=== PATIENT | male | born 1945 | race Caucasian/White ===

== ENCOUNTER → 2019-11-21 08:13 | Outpatient (REF) | payer MEDICARE, SELFPAY | LOC: ANHLAB 08:13 | PROVIDERS: PCP Family Medicine; Visit Provider Nurse Practitioner | DX: C44.42 Squamous cell carcinoma of skin of scalp and neck (principal) | CPT/HCPCS: 88305 ==

== ENCOUNTER → 2020-02-05 08:01 | Outpatient (REF) | payer MEDICARE, SELFPAY | LOC: ANHLAB 08:01 | PROVIDERS: PCP Family Medicine; Visit Provider Nurse Practitioner | DX: C44.42 Squamous cell carcinoma of skin of scalp and neck (principal) | CPT/HCPCS: 88305; 88331 ==

== ENCOUNTER → 2020-03-12 08:30 | Outpatient (REF) | payer MEDICARE, SELFPAY | LOC: ANHLAB 08:30 | PROVIDERS: PCP Family Medicine; Visit Provider Nurse Practitioner | DX: C44.42 Squamous cell carcinoma of skin of scalp and neck (principal); C44.319 Basal cell carcinoma of skin of other parts of face | CPT/HCPCS: 88305 ==

== ENCOUNTER → 2020-07-08 07:55 | Outpatient (REF) | payer MEDICARE, SELFPAY | LOC: ANHLAB 07:55 | PROVIDERS: PCP Family Medicine; Visit Provider Nurse Practitioner | DX: C44.319 Basal cell carcinoma of skin of other parts of face (principal); C44.42 Squamous cell carcinoma of skin of scalp and neck; D49.2 Neoplasm of unspecified behavior of bone, soft tissue, and skin; C44.1192 Basal cell carcinoma of skin of left lower eyelid, including canthus | CPT/HCPCS: 88305; 88331 ==

== ENCOUNTER → 2020-09-17 08:40 | Outpatient (REF) | payer MEDICARE, SELFPAY | LOC: ANHLAB 08:40 | PROVIDERS: PCP Family Medicine; Visit Provider Nurse Practitioner | DX: C44.42 Squamous cell carcinoma of skin of scalp and neck (principal) | CPT/HCPCS: 88305 ==

== ENCOUNTER → 2020-11-11 07:22 | Outpatient (REF) | payer MEDICARE, SELFPAY | LOC: ANHLAB 07:22 | PROVIDERS: PCP Family Medicine; Visit Provider Nurse Practitioner | DX: C44.42 Squamous cell carcinoma of skin of scalp and neck (principal) | CPT/HCPCS: 88305; 88331 ==

== ENCOUNTER → 2021-03-11 08:50 | Outpatient (REF) | payer MEDICARE, SELFPAY | LOC: ANHLAB 08:50 | PROVIDERS: PCP Family Medicine; Visit Provider Nurse Practitioner | DX: D49.2 Neoplasm of unspecified behavior of bone, soft tissue, and skin (principal) | CPT/HCPCS: 88305; 88342 ==

== ENCOUNTER 2021-04-20 13:32 | Outpatient (CLI) | payer MEDICARE, SELFPAY ==
--- NOTE | ~2021-04-20 | MR_ITS ---
EXAMINATION: MR brain/brain stem wo con EXAM DATE: 04/20/2021 14:42 INDICATION: Memory loss. TECHNIQUE: Magnetic resonance imaging (MRI) of the brain/brain stem obtained without contrast. Sagitt al T1, axial diffusion, gradient echo (T2*), T1, T2, FLAIR sequences obtained. Comparison is made to prior examination from 06/15/2019. FINDINGS: There are no areas of restricted diffusion to suggest acute infarction. There is no acute hemorrhage seen on the T2*, a hemosiderin sensitive sequence. No intraparenchymal brain mass lesion. There is moderate periventricular and subcortical T2/FLAIR signal hyperintensity, nonspecific but pr obably related to small vessel ischemic disease (microangiopathy). There is moderate prominence of the sulci and ventricles related to cerebral atrophy. There are no extra-axial collections. Flow v oids are seen in the cerebral arteries on the T2-weighted sequences consistent with their expected pa tency. Patient has had bilateral ocular lens surgery. Soft tissue is unremarkable. There is no sig nificant interval change. IMPRESSION: 1. No acute intracranial findings. 2. Chronic age related findings. Reviewed, dictated and finalized at location A.
== END 2021-04-20 13:33 | disposition home or self-care (01) ==
LOC: ANHIMG 13:33
PROVIDERS: PCP Family Medicine; Visit Provider Nurse Practitioner Gerontology
DX: R41.3 Other amnesia (principal)
CPT/HCPCS: 70551

== ENCOUNTER 2021-05-01 09:27 | Outpatient (CLI) | payer MEDICARE, SELFPAY ==
--- NOTE | 2021-05-01 09:29 | ECG_ITS ---
Measurements Intervals [place] Rate: 59 P: 62 [place]: 169 QRS: 20 QRSD: 106 T: 42 QT: 387 QTc: 385 Interpretive Statements SINUS BRADYCARDIA INCOMPLETE RIGHT BUNDLE BRANCH BLOCK BASELINE ARTIFACT- I, III, AVR, AVL, AVF BORDERLINE ECG Electronically Signed On 05-01-2021 9:46:40 CDT by Charlie Ruiz D.O.
[2021-05-01 09:57] LABS: Hemoglobin 12.6 g/dL (14.0-18.0); Mean Corpuscular HGB Conc 32.3 g/dl (32-36); Mean Corpuscular Hemoglobin 34.9 pg (26-34); Mean Platelet Volume 12.3 fl (7.4-10.4); Platelet Count Result 293 k/mm3 (150-375); Red Blood Count 3.61 M/mm3 (4.6-6.20); Red Cell Distribution Width 14.3 % (11.5-14.5); White Blood Count 27.5 K/mm3 (4.5-10.0)
[2021-05-01 10:15] LABS: INR 1.1; Prothrombin Time 13.8 Seconds (11.1-14.7)
[2021-05-01 10:16] LABS: Partial Thromboplastin Time 28.2 SECONDS (22.3-36.8)
[2021-05-01 10:48] LABS: Band Neutrophils Percent 5 % (0-6); Basophils Absolute Manual 0.82 K/mm3 (0.0-0.1); Basophils Percent Manual 3 % (0-1); Eosinophils Absolute Manual 0.27 K/mm3 (0.02-0.5); Eosinophils Percent Manual 1 % (0-4); Monocytes Percent Manual 4 % (3-9); Neutrophils Percent Manual 59 % (46-73); Total Cells Counted 100
[2021-05-01 10:49] LABS: Anisocytosis 2+ (NORMAL); Atypical Lymphocytes Present; Digoxin < 0.5 ng/mL (0.8-2.0); Platelet Estimate Adequate (Adequate)
[2021-05-01 10:50] LABS: Anion Gap 9 mmol/L (8-16); Blood Urea Nitrogen 25 mg/dL (9-20); Calcium 10.3 mg/dL (8.4-10.2); Carbon Dioxide 29 mmol/L (22-30); Chloride 100 mmol/L (98-107); Estimated Glomerular Filt Rate 59; Glucose 199 mg/dL (65-110); Potassium 4.5 mmol/L (3.4-5.0); Sodium 138 mmol/L (137-145)
== END 2021-05-01 09:28 | disposition home or self-care (01) ==
LOC: ANHSURGERY 09:28
PROVIDERS: Anesthesiology; PCP Family Medicine; Visit Provider Urology
DX: Z01.818 Encounter for other preprocedural examination (principal); N40.0 Benign prostatic hyperplasia without lower urinary tract symptoms; Z51.81 Encounter for therapeutic drug level monitoring; I10 Essential (primary) hypertension
CPT/HCPCS: 36415; 80048; 80162; 85025; 85610; 85730; 87086; 93005

== ENCOUNTER → 2021-05-05 07:55 | Outpatient (REF) | payer MEDICARE, SELFPAY | LOC: ANHLAB 07:55 | PROVIDERS: PCP Family Medicine; Visit Provider Nurse Practitioner | DX: C44.42 Squamous cell carcinoma of skin of scalp and neck (principal) | CPT/HCPCS: 88305; 88331 ==

== ENCOUNTER 2021-05-13 00:39 | Day surgery (SDC) | payer MEDICARE, SELFPAY ==
[2021-04-30 09:15] VITALS: BMI 24.4
[2021-05-13] VITALS (10 sets, daily range): BP systolic 107–167; BP diastolic 46–75; PULSE 55–73; RESP 13–20; TEMP 36.2–36.4; O2SAT 92–100
[2021-05-13] MEDS: LACTATED RINGERS 1,000 ML 30 ML IV CONT (07:10)
--- NOTE | 2021-05-13 07:12 | WPDHPUPDATE1 ---
History and Physical Update Update Date/Time: 05/13/21 07:12 History and Physical has been reviewed, including an updated exam of the patient. There are NO changes in the patient's condition. Risks, benefits, and alternatives have been discussed and questions answered. Patient agrees to proceed with procedure. Proceed with urolift , possible tuip
--- NOTE | 2021-05-13 07:16 | WPDANESEPPF ---
Anes - Initial Pre Proc Eval Procedure: Operation Date: 05/13/21 07:30 Proposed Procedures p Urolift - Mohinder Dunham MD s Trans Urethral Incision Prostate - Mohinder Dunham MD Date/Time: 05/13/21 07:16 Surgeon: Mohinder Dunham MD Pre Op Diagnosis: Benign Nodule, BPH Patient Data Age: 76 Gender: M Height: 1.75 m Weight: 75 kg Allergies Allergy/AdvReac Type Severity Reaction Status Date / Time No Known Allergies Allergy Verified 04/30/21 09:10 Home Medications Medication Instructions Recorded Confirmed Type apixaban 5 mg tablet 5 mg PO BID 08/21/19 05/13/21 History digoxin 125 mcg (0.125 mg) tablet 125 mcg PO DAILY 08/21/19 05/13/21 History hydroxyurea 500 mg capsule 500 mg PO DAILY 08/21/19 05/13/21 History metoprolol tartrate 25 mg tablet 25 mg PO DAILY 08/21/19 05/13/21 History metformin 1,000 mg tablet 1,000 mg PO BID #180 tablet 12/23/20 05/13/21 Rx memantine 5 mg tablet 5 mg PO QAM 01/15/21 05/13/21 History finasteride 5 mg tablet 5 mg PO DAILY #30 tablet 03/16/21 05/13/21 Rx tamsulosin 0.4 mg capsule 0.4 mg PO DAILY #90 cap 04/25/21 05/13/21 Rx acetaminophen [Tylenol Extra 1,000 mg PO HS 04/30/21 05/13/21 History Strength] atorvastatin [Lipitor] 20 mg PO DAILY 04/30/21 05/13/21 History donepezil [Aricept] 5 mg PO DAILY 04/30/21 05/13/21 History Patient hx anesthesia problems: none Family hx anesthesia problems: none PMFSH Past Medical History Medical History BMI 23.0-23.9, adult Diabetes High cholesterol History of melanoma Hypertension Surgical History Surgical History History of carpal tunnel release of both wrists History of knee surgery History of melanoma excision History of rotator cuff surgery Left Status post trigger finger release Marcial hand. Family History Family History Mother Family history of diabetes mellitus in first degree relative Other Diabetes mellitus Social History Social History Smoking status: Former smoker Second hand tobacco smoke exposure: No Additional smoking assessment comments: SPOUSE STATES QUIT OVER 25+YRS AGO Alcohol intake: current Drinks per week: 1 Substance use: never Substance use type: does not use Living arrangements: with family Spiritual care concerns: No Anes - Eval Final PreProcedure Day of Procedure 05/13/21 07:16 Patient weight: overweight Heart: regular rate and rhythm Lungs: clear to auscultation Airway: Mallampati scale class II Neurological: alert and oriented Last oral intake: >/= 8 hours ASA classification: III Emergent: no Anesthetic plan: proceed Anesthesia type and monitoring: general LMA and standard monitoring Informed Consent: The patient's anesthetic plan and its attendant risks and benefits were discussed with the patient/family/POA. Questions were solicited and answers provided to the satisfaction of the patient/family/POA.
[2021-05-13 07:22] LABS: Glucose Point of Care 242 mg/dl (65-105)
[2021-05-13] MEDS: ceFAZolin 2 GM/D5W 50 ML 2 GM/50 ML BAG IVPB (07:27)
[2021-05-13] MEDS: LIDOCAINE HCL 2% GEL UROJET 10 ML PKG MUCOUS MEM (07:42)
--- NOTE | 2021-05-13 08:13 | P.OP_ITS ---
Procedure Note - Detailed Date of Procedure 05/13/21 Pre-op Diagnosis Benign Nodule, BPH Post-op Diagnosis same Procedure Performed urolift x4 JESSICA padron Surgeon Mohinder Dunham MD Anesthesia general Description of Procedure Patient is taken to the operative suite and correctly identified. Once anesth esia was obtained was placed in dorsal lithotomy position and prepped draped usual sterile fashion. The meatus was dilated up to 28 [place]. Twenty-four [place] resectoscope sheath was inserted in the bladder. Patient has an elevated median bar. We did a transurethral incision of the prostate by incising at the 5 and 7 o'clock position. This left quite a bit of persistent elevation. We then used a 24 loop to simply resect the tissue at the bladder neck 6 o'clock position. Hemostasis was achieved using electrocautery. We then went ahead and did the year left. For vito were placed. Two were 2 1 cm proximal to the bladder neck and the other to near the verumontanum. The prostatic fossa appeared open at termination of procedure. 2% viscous lidocaine was inserted into the urethra. A 20 [place] Blue was placed with 10 cc in the balloon. This was connected to continuous bladder irrigation. Patient is taken recovery room stable condition. He will have the Blue removed in 2 days. Drains Yes Packing No Pathology yes Complications No immediate complications Condition stable Disposition PACU
[2021-05-13 08:42] LABS: Glucose Point of Care 223 mg/dl (65-105)
--- NOTE | 2021-05-13 08:51 | SUR.PHASEI ---
DR AWAD NOTIFIED OF GLUCOSE. PT WAS 242 AT 0719 PREOP, NOW POST OP IS 223 AT 0840. NO NEW ORDERS.
[2021-05-13] MEDS: oxyCODONE HCL (*CRX) 2.5 MG TAB IR PO (10:19)
== END 2021-05-13 10:35 | disposition home or self-care (01) ==
PROVIDERS: PCP Family Medicine; Visit Provider Urology
PROC: 0T7D8DZ Dilation of Urethra with Intraluminal Device, Via Natural or Artificial Opening Endoscopic (ICD-10-PCS; CPT 52441; principal; 2021-05-13 07:30)
PROC: 0VT08ZZ Resection of Prostate, Via Natural or Artificial Opening Endoscopic (ICD-10-PCS; CPT 52601; 2021-05-13 07:30)
DX: N40.1 Benign prostatic hyperplasia with lower urinary tract symptoms (principal); R33.8 Other retention of urine; R35.0 Frequency of micturition; R35.1 Nocturia; Z79.01 Long term (current) use of anticoagulants; Z79.84 Long term (current) use of oral hypoglycemic drugs; E11.9 Type 2 diabetes mellitus without complications; E78.00 Pure hypercholesterolemia, unspecified; I10 Essential (primary) hypertension; Z85.820 Personal history of malignant melanoma of skin; Z87.891 Personal history of nicotine dependence
CPT/HCPCS: 52450; C9740; 82948; 88305; A9270; J0690; J1100; J2405; J2704; J3010; J7120; L8699

== ENCOUNTER → 2021-09-16 11:11 | Outpatient (REF) | payer MEDICARE, SELFPAY | LOC: ANHLAB 11:11 | PROVIDERS: PCP Family Medicine; Visit Provider Nurse Practitioner | DX: C44.319 Basal cell carcinoma of skin of other parts of face (principal); C44.212 Basal cell carcinoma of skin of right ear and external auricular canal; C44.42 Squamous cell carcinoma of skin of scalp and neck | CPT/HCPCS: 88305 ==

== ENCOUNTER → 2021-10-29 10:05 | Outpatient (CLI) | payer MEDICARE, SELFPAY ==
--- NOTE | ~2021-10-29 | XR_ITS ---
EXAMINATION: XR chest 2V EXAM DATE: 10/29/2021 10:20 INDICATION: J20.9 - Acute bronchitis, unspecified . TECHNIQUE: Frontal and lateral projections of the chest obtained and reviewed. Comparison is made to prior examination from 09/13/2019. FINDINGS: There is large right pleural effusion. There is adjacent compressive atelectasis. Underlyin g malignancy or pneumonia not excludable. Left lung is clear. No pneumothorax. Cardiomediastinal lakshmi houette is normal. There is aortic arteriosclerosis.. Patient has diffuse idiopathic skeletal hyperos tosis (DISH). IMPRESSION: Large right pleural effusion, adjacent lobar atelectasis. Underlying cancer or pneumonia not excludable. Options include diagnostic thoracentesis, CT chest with contrast, follow-up x-ray. P david clinically correlate. Reviewed, dictated and finalized at location A. GER INTEL IMPRESSION: Large right pleural effusion, adjacent lobar atelectasis. Underlyin g cancer or pneumonia not excludable. Options include diagnostic thoracentesis , CT chest with contrast, follow-up x-ray. Please clinically correlate.
== END ==
PROVIDERS: PCP Family Medicine; Visit Provider Physician Assistant Medical
DX: J20.9 Acute bronchitis, unspecified (principal); J90 Pleural effusion, not elsewhere classified; I70.0 Atherosclerosis of aorta; M48.10 Ankylosing hyperostosis [Forestier], site unspecified
CPT/HCPCS: 71046

== ENCOUNTER 2021-11-17 15:20 | Inpatient (IN) | payer MEDICARE, SELFPAY ==
[2021-11-17] VITALS (10 sets, daily range): BP systolic 112–131; BP diastolic 61–80; PULSE 93–102; RESP 21–28; TEMP 36.4–36.8; O2SAT 97–98; BMI 21.3
--- NOTE | ~2021-11-17 | CT_ITS ---
EXAMINATION: CTA chest PE protocol DATE: 11/17/2021 16:56 INDICATION: Shortness of breath. Right lower chest pain. Large right pleural effusion TECHNIQUE: Computed tomography angiography (CTA) of the chest was performed with 100 mL Omnipaque-350 intravenous contrast timed to evaluate the pulmonary arteries. Coronal maximum intensity projection 3D-reconstructions were created by the technologist. Automated exposure control and iterative reconst ruction technique were employed. Exam dose: 258.53 mGy-cm total exam DLP. COMPARISON: 10/29/2021 PA and lateral chest FINDINGS: There is diagnostic contrast enhancement of the pulmonary arteries and no evidence of pulmo nary embolism. There is a huge right pleural effusion with complete atelectasis of the right lower and middle lobes and prominent right upper lobe atelectasis. There is minimal aeration of the middle lobe bronchus and no aeration of the right lower lobe. For more optimal evaluation, consider thoracentesis and repeat CT examination Due to the large right pleural effusion there is also some leftward shift of the heart mediastinum. There is mild to moderate pericardial effusion. No cardiomegaly. There is thoracic aortic and great vessel and coronary calcification. No left hilar mass lesion or ly mphadenopathy is noted. Emphysematous changes of the left lung there is some septal soft tissue thickening particularly in th e peripheral lung zones which may be due to interstitial edema, interstitial fibrosis less likely lym phangitic spread of tumor. 3.3 mm left upper lobe nodule (series 4 image 30). Diffuse idiopathic skeletal hyperostosis of the thoracic spine; no suspicious osteolytic or osteoblas tic lesions are noted IMPRESSION: No evidence of pulmonary embolism Very large right pleural effusion with complete atelectasis of middle and lower lobes and prominent a telectasis of right upper lobe and leftward shift of heart and mediastinum; consider right thoracente sis and repeat CT examination for more definitive evaluation Mild to moderate pericardial effusion Emphysema Predominantly peripheral septal soft tissue thickening of the left lung; differential diagnosis inclu chele interstitial edema, interstitial fibrotic changes, less likely lymphangitic tumor spread Reviewed, dictated and finalized at Location A. Reviewed, dictated and finalized at location B. OID MILL OPERATOR IMPRESSION: No evidence of pulmonary embolism Very large right pleural effusion with complete atelectasis of middle and lower lobes and prominent atelectasis of right upper lobe and leftward shift of hear t and mediastinum; consider right thoracentesis and repeat CT examination for m ore definitive evaluation Mild to moderate pericardial effusion Emphysema Predominantly peripheral septal soft tissue thickening of the left lung; differ ential diagnosis includes interstitial edema, interstitial fibrotic changes, le ss likely lymphangitic tumor spread
--- NOTE | ~2021-11-17 | XR_ITS ---
EXAMINATION: [id number] DATE: 11/18/2021 09:58 INDICATION: Right pleural effusion status post thoracentesis. TECHNIQUE: Frontal and lateral views of the chest were obtained. COMPARISON: Chest 2 views 05/09/2019, chest CT 11/17/2021 FINDINGS: There are large right and small left pleural effusions. There is a diffuse reticulonodular pattern in the lungs. No pneumothorax. The heart size is normal. IMPRESSION: 1. Large right and small left pleural effusions. 2. Reticulonodular pattern in the lungs, which may be infection or metastatic disease without or with superimposed pulmonary edema. Reviewed, dictated and finalized at location A. P SORTER IMPRESSION: 1. Large right and small left pleural effusions. 2. Reticulonodular pattern in the lungs, which may be infection or metastatic d isease without or with superimposed pulmonary edema.
--- NOTE | ~2021-11-17 | US_ITS ---
EXAMINATION: US thoracentesis DATE: 11/18/2021 09:56 INDICATION: pleural effusion TECHNIQUE: The procedure and its risks, benefits, and alternatives were discussed with the patient. P otential risks discussed included bleeding, infection, and pneumothorax. The patient understood the r isks and agreed to proceed. The skin was prepped and draped in sterile fashion. 1% lidocaine was used for local anesthesia. Under ultrasound guidance, a 5 Fr catheter with trochar was advanced into the right pleural effusion. Fluid was aspirated. The catheter was removed, and a dressing was applied. Th ere were no immediate complications. FINDINGS: Ultrasound images demonstrate a right pleural effusion and the catheter within the fluid. IMPRESSION: 1. Successful ultrasound-guided thoracentesis yielding 1000 mL of clear, breezy-colored fluid. Reviewed, dictated and finalized at location A. MER AND BORER MACHINE OPERATOR IMPRESSION: 1. Successful ultrasound-guided thoracentesis yielding 1000 mL of clear, breezy -colored fluid.
--- NOTE | 2021-11-17 15:47 | ECG_ITS ---
Measurements Intervals [place] Rate: 96 P: 60 [place]: 154 QRS: 38 QRSD: 94 T: 46 QT: 327 QTc: 415 Interpretive Statements SINUS RHYTHM INCOMPLETE RIGHT BUNDLE BRANCH BLOCK ST-T WAVE ABNORMALITY IN ANTEROLATERAL LEADS- CONSIDER ISCHEMIA BASELINE ARTIFACT- I, II, III, AVR, AVL, AVF, V6 ABNORMAL ECG Electronically Signed On 11-17-2021 16:59:24 CONSTRUCTION MGR by Charlie Ruiz D.O.
[2021-11-17 16:19] LABS: Basophils Absolute Auto 0.1 K/mm3 (0.0-0.1); Basophils Percent Auto 0.5 % (0.2-1.2); Eosinophils Absolute Auto 0.1 K/mm3 (0-0.3); Eosinophils Percent Auto 1.3 % (0-4.4); Hematocrit 35.4 % (42.0-52.0); Hemoglobin 11.7 g/dL (14.0-18.0); Immature Granulocyte Absolute 0.09 K/mm3 (0.00-0.031); Immature Granulocyte Percent A 0.8 % (0-0.5); Lymphocytes Absolute Auto 1.56 K/mm3 (0.9-3.2); Lymphocytes Percent Auto 14.1 % (18.3-44.2); Mean Corpuscular HGB Conc 33.1 g/dl (32-36); Mean Corpuscular Hemoglobin 35.9 pg (26-34); Mean Corpuscular Volume 108.6 fl (80-100); Mean Platelet Volume 11.6 fl (7.4-10.4); Monocytes Absolute Auto 2.6 K/mm3 (0.1-0.6); Monocytes Percent Auto 23.3 % (2.6-8.5); Neutrophils Absolute Auto 6.6 K/mm3 (1.3-6.7); Platelet Count Result 241 k/mm3 (150-375); Red Blood Count 3.26 M/mm3 (4.6-6.20); Red Cell Distribution Width 17.7 % (11.5-14.5); White Blood Count 11.1 K/mm3 (4.5-10.0)
[2021-11-17] MEDS: SODIUM CHLORIDE 0.9% IV 1,000 ML 999 ML IV CONT (16:19)
[2021-11-17 16:32] LABS: Lactic Acid Reflex 1.7 mmol/L (0.7-2.1)
[2021-11-17 16:33] LABS: INR 1.6; Prothrombin Time 18.7 Seconds (11.1-14.7)
[2021-11-17 16:34] LABS: Alanine Aminotransferase 14 U/L (4-50); Albumin Level 3.7 g/dL (3.5-5.1); Alkaline Phosphatase 92 U/L (38-126); Anion Gap 8 mmol/L (8-16); Aspartate Amino Transferase 19 U/L (17-59); Bilirubin,Total 0.8 mg/dL (0.2-1.3); Blood Urea Nitrogen 26 mg/dL (9-20); CRP 2.3 mg/dL (<1.0); Calcium 9.7 mg/dL (8.4-10.2); Carbon Dioxide 27 mmol/L (22-30); Chloride 98 mmol/L (98-107); Estimated Glomerular Filt Rate > 60; Glucose 171 mg/dL (65-110); Potassium 4.2 mmol/L (3.4-5.0); Sodium 133 mmol/L (137-145)
[2021-11-17 16:34] LABS: Partial Thromboplastin Time 34.5 SECONDS (22.3-36.8)
--- NOTE | 2021-11-17 16:45 | PC.NURSE ---
Called lab to add on BNP
[2021-11-17 16:57] LABS: Troponin I 0.048 ng/mL (0.000-0.034)
--- NOTE | 2021-11-17 17:14 | PC.NURSE ---
Called lab and spoke to Bethany about BNP. She will check status and get testing going if it has not yet been started
[2021-11-17 17:33] LABS: NT Pro B Type Natriuretic Pept 1190 pg/mL (5-100)
[2021-11-17 17:51] LABS: Add Urine Microscopic? NO; Appearance Urine Clear (Clear); Bilirubin Urine Negative (Negative); Blood Urine Negative (Negative); Color Urine Yellow (Yellow); Glucose Urine UA Negative (Negative); Ketones Urine Negative (Negative); Leukocyte Esterase Ur Negative LEU/UL (Negative); Nitrate Urine Negative (Negative); Protein Urine Negative (Negative); Urobilinogen Urine Negative mg/dL (<2.0)
--- NOTE | 2021-11-17 18:19 | ED.GENADULT ---
HPI - General Adult General Chief complaint: Weakness Stated complaint: Weakness Time Seen by Provider: 11/17/21 15:46 Source: patient, family, RN notes reviewed and other Mode of arrival: ambulatory Limitations: no limitations History of Present Illness HPI narrative: Patient is a 76-year-old male who presents with worsening dyspnea weight loss fatigue cough that of been present since October and progressively worsened and began to lose weight in the last year primary care had managed him as a bronchitis and noting that he had not gotten any better with antibiotics or steroids patient on arrival is ill-appearing he is lying in the bed nondistressed does not appear dyspneic or in respiratory distress patient denies any pain upon arrival he notes that his symptoms are worse with activity and movement. Patient denies vomiting diarrhea he is accompanied by his , discussion was also made with primary care doctor's office regarding this patient. Patient is also had some intermittent right-sided chest discomfort and abdominal discomfort in the upper abdomen Related Data Home Medications Medication Instructions Recorded Confirmed apixaban 5 mg tablet 5 mg PO BID 08/21/19 11/17/21 digoxin 125 mcg (0.125 mg) tablet 125 mcg PO DAILY 08/21/19 11/17/21 metoprolol tartrate 25 mg tablet 25 mg PO DAILY 08/21/19 11/17/21 donepezil [Aricept] 5 mg PO DAILY 04/30/21 11/17/21 hydroxyurea 500 mg capsule 1,000 mg PO DAILY cap 10/29/21 11/17/21 Allergies Allergy/AdvReac Type Severity Reaction Status Date / Time No Known Allergies Allergy Verified 11/17/21 14:24 Review of Systems Review of Systems: All systems reviewed & are unremarkable except as noted in HPI and below PMFSH Past Medical History Medical History BMI 23.0-23.9, adult Diabetes High cholesterol History of melanoma Hypertension Surgical History Surgical History History of bladder surgery History of carpal tunnel release of both wrists History of knee surgery History of melanoma excision History of rotator cuff surgery Left Status post trigger finger release Marcial hand. Family History Family History Mother Family history of diabetes mellitus in first degree relative Father No problems noted. Sibling No problems noted. 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 HEAD: Normocephalic, atraumatic. EYES: PERRLA and EOMI. ENT: Nares clear, no rhinorrhea or epistaxis. Mucous membranes moist. CHEST: Diminished on auscultation. No respiratory distress. Coarse breath sounds on auscultation HEART: Regular rate and rhythm. No murmur heard. Normal peripheral pulses. ABDOMEN: Soft, nontender, nondistended EXTREMITIES: Normal range of motion. No edema. SKIN: Warm, dry, no rash. NEURO: No focal deficits. Alert and oriented x3. PSYCH: Normal mood and affect. Course Course Emergency Course: Patient in the room at this time aware of case findings treatment plan and diagnosis will be placed in hospital for thoracentesis he is on Eliquis at this time will have to be held patient aware of his findings agreement with the treatment plan to stay in hospital for further information regarding his pleural effusion for therapeutic and diagnostic tap and for trending of his troponins. A
--- NOTE | 2021-11-17 19:00 | PM.IMHP ---
H&P: HPI History of Present Illness Date/Time: 11/17/21 19:00 <Sarah Ernandez PA-C - Last Filed: 11/17/21 20:00> Chief Complaint: Shortness of breath. <Sarah Ernandez PA-C - Last Filed: 11/17/21 20:00> Narrative: This is a very pleasant 76-year-old male with paroxysmal atrial fibrillation on chronic anticoagulation, type 2 diabetes mellitus, skin cancer, and essential thrombocytosis who presented to the emergency department today at the [facility] is primary care provider for further evaluation of shortness of breath. He complains of an ongoing cough (occasionally productive of clear phlegm), wheezing, shortness of breath, and progressive weakness which have been present for approximately 6 weeks. Chest x-ray on 10/29/2021 showed a large right pleural effusion for which he receives steroids, antibiotics, and inhalers. Unfortunately his symptoms continue despite these interventions. Additionally his appetite has been quite poor for the last month and a half and in fact he endorses a 30 lb unintentional weight loss in the same time frame. He had a follow-up appointment today with his doctor and was referred to the ER for further evaluation. Chest CTA showed no evidence of pulmonary embolism but did show a very large right pleural effusion with atelectasis and mediastinal shift as well as peripheral septal soft tissue thickening of the left lung, [id number] pericardial effusion, and findings of emphysema. He is being admitted in this setting for further workup. He has no known history of COPD, emphysema, or asthma. He has not had fever, chills, or sweats. Appetite has been poor but he has not had nausea or vomiting. He endorses mild right-sided chest discomfort with deep inspiration but nothing significant. No orthopnea, PND, or lower extremity edema. <Sarah Ernandez PA-C - Last Filed: 11/17/21 20:00> Review of Systems Review of Systems: Twelve systems were reviewed. No headache, sinus congestion, rhinorrhea, otalgia, or odynophagia. No exertional chest pain. No nausea or vomiting. No diarrhea. Except as documented, all other systems were reviewed and are negative. <Sarah Ernandez PA-C - Last Filed: 11/17/21 20:00> [facility] Past Medical History Medical History: Medical History (Updated 11/17/21 @ 19:50 by Sarah Ernandez PA-C) Benign prostatic hyperplasia Chronic anticoagulation Essential thrombocytosis History of skin cancer Including basal cell and squamous cell carcinoma. Melanoma documented however patient and deny this diagnosis. Hyperlipidemia Hypertension Osteoarthritis Paroxysmal atrial fibrillation Short-term memory loss Type 2 diabetes mellitus <Sarah Ernandez PA-C - Last Filed: 11/17/21 20:00> Surgical History Surgical History: Surgical History (Updated 11/17/21 @ 19:43 by Sarah Ernandez PA-C) History of bladder surgery Bladder biopsy, benign pathology. History of carpal tunnel release of both wrists History of knee surgery History of open reduction and internal fixation (ORIF) procedure Right femur fracture. History of repair of rotator cuff Bilateral. 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 Status post trigger finger release Bilateral. <Sarah Ernandez PA-C - Last Filed: 11/17/21 20:00> Family History Family History: Family History Mother Family history of diabetes mellitus in first degree relative Father No problems noted. Sibling No problems noted. Other Diabetes mellitus <Sarah Ernandez PA-C - Last Filed: 11/17/21 20:00> Social History Social History: Social History (Updated 11/17/21 @ 19:44 by Sarah Ernandez PA-C) Social History: Surrogate decision maker: Meera Patterson, . Code status: Full code. Smoking status: Former smoker Tobac
--- NOTE | 2021-11-17 19:50 | ADMGEN ---
This patient, Shane Patterson, was admitted to [facility] as an IMU overflow at 1948. Patient/family oriented to hospital policies and general routines including ID bracelet, bed and alarms, visiting hours, pain management, procedures, bathroom and other care routines, personal items, smoking policy, room service/diet, and visiting hours. Information on how to activate the Rapid Response Team has been discussed. Patient/Family are encouraged to report perceived risks to care and to ask questions if they do not understand what they are told or what they should do.
[2021-11-17 20:57] LABS: Troponin I 0.058 ng/mL (0.000-0.034)
[2021-11-17 23:01] LABS: Troponin I 0.061 ng/mL (0.000-0.034)
[2021-11-18] VITALS (19 sets, daily range): BP systolic 102–135; BP diastolic 41–67; PULSE 67–111; RESP 16–26; TEMP 36.2–36.5; O2SAT 97–100
[2021-11-18 05:54] LABS: Hematocrit 31.5 % (42.0-52.0); Hemoglobin 10.4 g/dL (14.0-18.0); Mean Corpuscular Hemoglobin 36.2 pg (26-34); Mean Corpuscular Volume 109.8 fl (80-100); Mean Platelet Volume 11.6 fl (7.4-10.4); Platelet Count Result 186 k/mm3 (150-375); Red Blood Count 2.87 M/mm3 (4.6-6.20); Red Cell Distribution Width 17.7 % (11.5-14.5); White Blood Count 8.8 K/mm3 (4.5-10.0)
[2021-11-18 06:05] LABS: INR 1.5; Prothrombin Time 17.4 Seconds (11.1-14.7)
[2021-11-18 06:06] LABS: Alanine Aminotransferase 10 U/L (4-50); Alkaline Phosphatase 81 U/L (38-126); Amylase 45 U/L (30-110); Anion Gap 3 mmol/L (8-16); Aspartate Amino Transferase 13 U/L (17-59); Bilirubin,Total 0.9 mg/dL (0.2-1.3); Blood Urea Nitrogen 21 mg/dL (9-20); Calcium 8.9 mg/dL (8.4-10.2); Carbon Dioxide 29 mmol/L (22-30); Chloride 103 mmol/L (98-107); Cholesterol 87 mg/dL (0-200); Estimated CRCL calculation 57 ml/min; Estimated Glomerular Filt Rate > 60; Glucose 115 mg/dL (65-110); Lactate Dehydrogenase 316 U/L (313-618); Magnesium 1.3 mg/dL (1.6-2.3); Potassium 4.2 mmol/L (3.4-5.0); Sodium 135 mmol/L (137-145); Triglycerides 154 mg/dL (<150)
[2021-11-18 08:12] LABS: Hemoglobin A1C 6.7 % (<5.7)
[2021-11-18] MEDS: METOPROLOL TARTRATE 25 MG TABLET PO ×2 (10:54→20:40)
[2021-11-18] MEDS: metFORMIN HCL 500 MG TABLET 1000 MG PO ×2 (10:54→16:45)
[2021-11-18] MEDS: HYDROXYUREA (*CHEMO) 500 MG CAPSULE PO (10:54)
[2021-11-18] MEDS: TAMSULOSIN HCL 0.4 MG CAPSULE PO (10:54)
[2021-11-18] MEDS: DIGOXIN TAB 125 MCG TABLET PO (10:54)
[2021-11-18] MEDS: ATORVASTATIN 20 MG TABLET PO (10:55)
[2021-11-18] MEDS: DONEPEZIL HCL 5 MG TABLET 10 MG PO (10:55)
[2021-11-18] MEDS: MEMANTINE 10 MG TABLET PO ×2 (10:56→16:45)
[2021-11-18 11:12] LABS: Appearance Pleural Fluid Clear (Clear); Pleural fluid source Pleural fluid
[2021-11-18 11:13] LABS: Color Pleural Fluid Yellow (Colorless); Lymphocytes Pleural Fluid 46 %; Mesothelial Cells Pleural Flui 46 %; Monocytes Pleural Fluid 4 %; Neutrophils Pleural Fluid 4 % (0-25)
[2021-11-18 11:19] LABS: Nucleated Cell Pleural Fluid 601 /uL (0-1000); RBC Pleural Fluid 2286 /uL (0-0)
[2021-11-18 13:02] LABS: Glucose Point of Care 96 mg/dl (65-105)
[2021-11-18] MEDS: MAGNESIUM SULF 2 GM/WATER 50ML 2 GM/50 ML BAG IVPB (13:34)
--- NOTE | 2021-11-18 15:51 | PC.NURSE ---
This patient, Shane Patterson, was received from dental laboratory technology teacher on 11/18/21 at 1530. Patient/family oriented to unit policies and routines
--- NOTE | 2021-11-18 15:51 | PM.IMPN ---
Progress Note: A&P Assessment and Plan (1) Pleural effusion on right: Code(s): J90 - Pleural effusion, not elsewhere classified Status: Acute Assessment and Plan: Large right-sided pleural effusion with adjacent atelectasis and leftward shift of the heart mediastinum. He will need a diagnostic thoracentesis and hopefully that can be performed tomorrow. Last dose of Eliquis was in the morning of 11/17/2021. 11/18/2021 Interval history: today patient had a thoracentesis and 1000 cc breezy color fluid was collected, breezy color, suspect transudate will follow-up on the labs and further recommendation to follow, had a cardiac echo, patient ejection fraction 65%, has grade 1 diastolic dysfunction, will continue to monitor will have a PT OT evaluate the patient and further recommendation to follow, patient's daughter is present and gave update (2) Elevated troponin: Code(s): R77.8 - Other specified abnormalities of plasma proteins Status: Acute Assessment and Plan: His chest pain seems more related to the pleural effusion. EKG did show some ST T-wave abnormalities in anterolateral leads thus he will be monitored on telemetry overnight and an echocardiogram has been ordered for a.m. Continue to trend troponins. (3) Pericardial effusion: Code(s): I31.3 - Pericardial effusion (noninflammatory) Status: Acute Assessment and Plan: Echocardiogram ordered for tomorrow. (4) Unintentional weight loss: Code(s): R63.4 - Abnormal weight loss Status: Acute Assessment and Plan: With constellation of the above findings, concerning for underlying malignancy. CT also shows a possible soft tissue thickening in the periphery of the left lung though he does have a history of skin cancer as well. Melanoma as documented EMR though poorly documented and the patient his deny history of such. (5) Paroxysmal atrial fibrillation: Code(s): I48.0 - Paroxysmal atrial fibrillation Status: Acute Assessment and Plan: Patient is in a sinus rhythm. Continue metoprolol. (6) Type 2 diabetes mellitus: Code(s): E11.9 - Type 2 diabetes mellitus without complications Status: Acute Assessment and Plan: Metformin on hold as he received contrast. Initiate sliding scale insulin, Accu-Cheks, and hypoglycemic protocol. Check A1c. 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 (8) Essential thrombocytosis: Code(s): D47.3 - Essential (hemorrhagic) thrombocythemia Status: Acute Assessment and Plan: Continue hydroxyurea. Patient of Dr. Brenden Lawton; patient would like to follow-up with him if his effusion is malignant. Subjective Date/time seen: 11/18/21 15:51 This is a very pleasant 76-year-old male with paroxysmal atrial fibrillation on chronic anticoagulation, type 2 diabetes mellitus, skin cancer, and essential thrombocytosis who presented to the emergency department today at the direction is primary care provider for further evaluation of shortness of breath. He complains of an ongoing cough (occasionally productive of clear phlegm), wheezing, shortness of breath, and progressive weakness which have been present for approximately 6 weeks. Chest x-ray on 10/29/2021 showed a large right pleural effusion for which he receives steroids, antibiotics, and inhalers. Unfortunately his symptoms continue despite these interventions. Additionally his appetite has been quite poor for the last month and a half and in fact he endorses a 30 lb unintentional weight loss in the same time frame. He had a follow-up appointment today with his doctor and was referred to the ER for further evaluation. Chest CTA showed no evidence of pulmonary embolism but did show a very large right pleural effusion w
--- NOTE | 2021-11-18 16:23 | PC.NURSE ---
1500-pt transferred to [facility] via bed and RN x2. Pt's daughter accompanied pt and had pt's belongings with her during transport.
[2021-11-18 16:28] LABS: Glucose Point of Care 187 mg/dl (65-105)
--- NOTE | 2021-11-18 19:52 | ECHO_ITS ---
Patient Info Name: Shane Patterson Age: 76 years : 1945 Gender: Male Ht: 69 in Wt: 146 lbs BSA: 1.79 m2 HR: 90 bpm BP: 102 / 54 mmHg Technical Quality: Good Exam Date: 11/18/2021 11:15 AM Exam Location: [facility] Patient Status: Outpatient Admit Date: 11/17/2021 Staff Ordering Physician: Sarah Ernandez PA-C Applied Biology Professor: Sari Keith RDCS Attending Provider: Bernadine Cole MD Referring Physician: Awais HI; Exam Type: CA echo doppler color flow Study Info Indications - ELEVATED TROPONIN I31.3 - Pericardial effusion (noninflammatory) Complete two-dimensional, color flow and Doppler transthoracic echocardiogram is performed. Summary 1. Complete two-dimensional, color flow and Doppler transthoracic echocardiogram is performed. 2. Normal LV size; wall thickness at upper limits of normal; normal LV systolic function, ejection fraction 60-65%. Grade 1 diastolic dysfunction. Mild RV enlargement with normal systolic function. Mild right atrial enlargement. Mild mitral annular calcification, no significant MR. Aortic valve sclerosis without stenosis. Trace TR, mild pulmonary hypertension, RVSP 43 mmHg. Small pericardial effusion predominantly along RV wall; no echocardiographic evidence of tamponade. Sinus rhythm. Left Ventricle Left ventricular chamber dimension is normal. Left ventricular systolic function is normal, estimated at 60-65%. There is mildly increased left ventricular wall thickness. The left ventricular diastolic function is grade I diastolic dysfunction. Right Ventricle Right ventricular chamber dimension is mildly enlarged. Right ventricular systolic function is normal. Left Atria Left atrial chamber dimension is normal. Right Atria Right atrial chamber dimension is mildly enlarged. Aortic Valve There is mild aortic valve sclerosis. There is no aortic valve stenosis. Pulmonic Valve The pulmonic valve is normal. There is trace pulmonic regurgitation. Mitral Valve There is no mitral valve regurgitation. The mitral valve annulus is mildly calcified. Tricuspid Valve The tricuspid valve leaflets are normal. There is trace tricuspid valve regurgitation. Mild pulmonary hypertension, estimated pulmonary arterial systolic pressure is 43 mmHg. Pericardium/Pleural There is small pericardial effusion. Inferior Vena Cava Normal inferior vena cava with >50% collapse upon inspiration consistent with normal right atrial pressure, 10 mmHg. Aorta The aortic root size at the sinus of Valsalva is normal. Left Ventricular Outflow Tract Name Value Normal LVOT 2D LVOT Diameter 2.0 cm LVOT Doppler LVOT Peak Gradient 3 mmHg LVOT Mean Gradient 2 mmHg LVOT VTI 17 cm LVOT VTI/AV VTI Ratio 0.9 LVOT Stroke Volume 52 ml LVOT CO 4.4 l/min LVOT CI 2.4 l/min/m2 Pulmonic Valve Name
[2021-11-18 20:45] LABS: Glucose Point of Care 143 mg/dl (65-105)
[2021-11-19] VITALS (10 sets, daily range): BP systolic 101–106; BP diastolic 50–53; PULSE 70–88; RESP 18; TEMP 35.9–36.6; O2SAT 94–100; BMI 20.4
[2021-11-19 07:41] LABS: Glucose Point of Care 139 mg/dl (65-105)
[2021-11-19] MEDS: HYDROXYUREA (*CHEMO) 500 MG CAPSULE PO (08:31)
[2021-11-19] MEDS: MEMANTINE 10 MG TABLET PO (08:31)
[2021-11-19] MEDS: metFORMIN HCL 500 MG TABLET 1000 MG PO (08:31)
[2021-11-19] MEDS: DIGOXIN TAB 125 MCG TABLET PO (08:31)
[2021-11-19] MEDS: TAMSULOSIN HCL 0.4 MG CAPSULE PO (08:32)
[2021-11-19] MEDS: DONEPEZIL HCL 5 MG TABLET 10 MG PO (08:32)
[2021-11-19] MEDS: MAGNESIUM OXIDE 400 MG TABLET PO (08:32)
[2021-11-19] MEDS: METOPROLOL TARTRATE 25 MG TABLET PO (08:32)
[2021-11-19] MEDS: ATORVASTATIN 20 MG TABLET PO (08:33)
[2021-11-19 08:52] LABS: Hematocrit 30.6 % (42.0-52.0); Hemoglobin 10.1 g/dL (14.0-18.0); Mean Corpuscular Hemoglobin 36.9 pg (26-34); Mean Corpuscular Volume 111.7 fl (80-100); Mean Platelet Volume 11.8 fl (7.4-10.4); Platelet Count Result 176 k/mm3 (150-375); Red Blood Count 2.74 M/mm3 (4.6-6.20); Red Cell Distribution Width 17.9 % (11.5-14.5); White Blood Count 8.7 K/mm3 (4.5-10.0)
[2021-11-19 09:06] LABS: Anion Gap 7 mmol/L (8-16); Blood Urea Nitrogen 25 mg/dL (9-20); Calcium 9.2 mg/dL (8.4-10.2); Carbon Dioxide 29 mmol/L (22-30); Chloride 97 mmol/L (98-107); Estimated CRCL calculation 49 ml/min; Estimated Glomerular Filt Rate > 60; Glucose 139 mg/dL (65-110); Magnesium 1.5 mg/dL (1.6-2.3); Potassium 4.2 mmol/L (3.4-5.0); Sodium 133 mmol/L (137-145)
[2021-11-19 11:42] LABS: Glucose Point of Care 186 mg/dl (65-105)
--- NOTE | 2021-11-19 11:51 | PM.DS ---
DS: Admitting Diagnosis Discharge Date 11/19/2021 Admitting Diagnosis shortness of breath DS: Discharge Diagnosis Discharge Diagnosis (1) Pleural effusion on right: Code(s): J90 - Pleural effusion, not elsewhere classified Status: Acute Assessment and Plan: Large right-sided pleural effusion with adjacent atelectasis and leftward shift of the heart mediastinum. He will need a diagnostic thoracentesis and hopefully that can be performed tomorrow. Last dose of Eliquis was in the morning of 11/17/2021. 11/18/2021 Interval history: today patient had a thoracentesis and 1000 cc breezy color fluid was collected, breezy color, suspect transudate will follow-up on the labs and further recommendation to follow, had a cardiac echo, patient ejection fraction 65%, has grade 1 diastolic dysfunction, will continue to monitor will have a PT OT evaluate the patient and further recommendation to follow, patient's daughter is present and gave update (2) Elevated troponin: Code(s): R77.8 - Other specified abnormalities of plasma proteins Status: Acute Assessment and Plan: His chest pain seems more related to the pleural effusion. EKG did show some ST T-wave abnormalities in anterolateral leads thus he will be monitored on telemetry overnight and an echocardiogram has been ordered for a.m. Continue to trend troponins. (3) Pericardial effusion: Code(s): I31.3 - Pericardial effusion (noninflammatory) Status: Acute Assessment and Plan: Echocardiogram ordered for tomorrow. (4) Unintentional weight loss: Code(s): R63.4 - Abnormal weight loss Status: Acute Assessment and Plan: With constellation of the above findings, concerning for underlying malignancy. CT also shows a possible soft tissue thickening in the periphery of the left lung though he does have a history of skin cancer as well. Melanoma as documented EMR though poorly documented and the patient his deny history of such. (5) Paroxysmal atrial fibrillation: Code(s): I48.0 - Paroxysmal atrial fibrillation Status: Acute Assessment and Plan: Patient is in a sinus rhythm. Continue metoprolol. (6) Type 2 diabetes mellitus: Code(s): E11.9 - Type 2 diabetes mellitus without complications Status: Acute Assessment and Plan: Metformin on hold as he received contrast. Initiate sliding scale insulin, Accu-Cheks, and hypoglycemic protocol. Check A1c. 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 (8) Essential thrombocytosis: Code(s): D47.3 - Essential (hemorrhagic) thrombocythemia Status: Acute Assessment and Plan: Continue hydroxyurea. Patient of Dr. Brenden Lawton; patient would like to follow-up with him if his effusion is malignant. DS: Summary Hospital Course Reason for hospitalization: Chief Complaint: Shortness of breath. <Sarah Ernandez PA-C - Last Filed: 11/17/21 20:00> Narrative: This is a very pleasant 76-year-old male with paroxysmal atrial fibrillation on chronic anticoagulation, type 2 diabetes mellitus, skin cancer, and essential thrombocytosis who presented to the emergency department today at the direction is primary care provider for further evaluation of shortness of breath. He complains of an ongoing cough (occasionally productive of clear phlegm), wheezing, shortness of breath, and progressive weakness which have been present for approximately 6 weeks. Chest x-ray on 10/29/2021 showed a large right pleural effusion for which he receives steroids, antibiotics, and inhalers. Unfortunately his symptoms continue despite these interventions. Additionally his appetite has been quite poor for the last month and a half and in fact he endorses a 30 lb unintentional weight l
[2021-11-20 13:14] LABS: Albumin Pleural Fluid 2.9 g/dL
[2021-11-22 16:16] LABS: Amylase, Pleural Fluid 31 U/L
[2021-11-25 05:35] LABS: Glucose Pleural Fluid 116 mg/dL; LDH Pleural Fluid 164 U/L; Total Protein Pleural Fluid 4.7 g/dL
== END 2021-11-19 12:50 | disposition home or self-care (01) | DRG 187 ==
LOC: ANHED 18:19 → ANHCPC 19:08 → ANH2MED 11-19 07:36
PROVIDERS: Emergency Medicine Emergency Medical Services; Physician Assistant; Admitting Provider Family Medicine; Emergency Provider Emergency Medicine; PCP Family Medicine; Visit Provider Family Medicine
DX: J90 Pleural effusion, not elsewhere classified (principal); I31.3 Pericardial effusion (noninflammatory); E11.9 Type 2 diabetes mellitus without complications; E78.5 Hyperlipidemia, unspecified; I48.0 Paroxysmal atrial fibrillation; I10 Essential (primary) hypertension; N40.0 Benign prostatic hyperplasia without lower urinary tract symptoms; Z79.899 Other long term (current) drug therapy; Z87.891 Personal history of nicotine dependence; R77.8 Other specified abnormalities of plasma proteins; D47.3 Essential (hemorrhagic) thrombocythemia; Z79.01 Long term (current) use of anticoagulants; Z79.84 Long term (current) use of oral hypoglycemic drugs; R63.4 Abnormal weight loss
CPT/HCPCS: 32555; 36415; 71275; 80048; 80053; 80162; 81003; 82042; 82150; 82465; 82945; 82948; 83036; 83605; 83615; 83735; 83880; 83986; 84157; 84311; 84443; 84478; 84484; 85025; 85027; 85610; 85730; 86140; 87040; 87070; 87075; 87076; 87205; 88104; 88108; 88184; 88185; 88305; 88313; 88342; 89051; 93005; 93306; 96360; 96361; 96365; 99285; A9270; G0378; J3475; J7030; Q9967

== ENCOUNTER 2021-11-22 09:47 | Inpatient (IN) | payer MEDICARE, SELFPAY ==
--- NOTE | ~2021-11-22 | XR_ITS ---
EXAMINATION: XR chest 2V DATE: 11/22/2021 10:19 INDICATION: Shortness of breath and right pleural effusion. TECHNIQUE: PA and lateral views of the chest were obtained. COMPARISON: Chest radiograph dated 10/29/[address] dated 11/17/2021 FINDINGS: Opacification of the majority of the right hemidiaphragm with small amount of residual aerated right upper lobe consistent with large right pleural effusion and associated atelectasis and/or pneumonia. Nipple shadow projects over the opacified right lower lung zones. Mild increased interstitial pattern in the left lower lung zone consistent with mild pulmonary edema. No pneumothorax or left-sided pleu ral effusion. The right heart border is obscured. Cardiomediastinal silhouette is otherwise normal. IMPRESSION: 1. Mild pulmonary edema in the left lower lung zone. 2. Increase in a unilateral large right pleural effusion with associated atelectasis and/or pneumonia . An underlying malignancy is also not excludable. Consider diagnostic thoracentesis. Reviewed, dictated and finalized at location A. INUOUS LINTER DRIER OPERATOR IMPRESSION: 1. Mild pulmonary edema in the left lower lung zone. 2. Increase in a unilateral large right pleural effusion with associated atelec tasis and/or pneumonia. An underlying malignancy is also not excludable. Consid er diagnostic thoracentesis.
--- NOTE | ~2021-11-22 | XR_ITS ---
[id number] 11/23/2021 10:11 Indication: Postthoracentesis. Procedure: AP and lateral views of the chest Comparison: Comparison to multiple prior studies sequentially, with oldest reviewed study dated 09/03. Findings: Persistent large right pleural effusion with underlying compressive atelectasis. Mild inter stitial infiltrates are present throughout the left lung which may represent interstitial edema or pn eumonia. No pneumothorax. Impression: 1: No pneumothorax identified post procedure. 2: Large right pleural effusion with underlying compressive atelectasis. 3: Interstitial infiltrates of the left lung which may reflect edema or pneumonia. Reviewed, dictated and finalized at location A. TEGY DIRECTOR Impression: 1: No pneumothorax identified post procedure. 2: Large right pleural effusion with underlying compressive atelectasis. 3: Interstitial infiltrates of the left lung which may reflect edema or pneumo terese.
--- NOTE | ~2021-11-22 | US_ITS ---
EXAMINATION: US thoracentesis DATE: 11/23/2021 11:17 TRIMMER OPERATOR THREE KNIFE INDICATION: Right pleural effusion. TECHNIQUE: Survey imaging of the right chest was performed. The procedure for ultrasound-guided thor acentesis and its risk and benefits were discussed with the patient. Risks included but were not limi marin to pain, bleeding, pneumothorax and infection. The patient verbalized understanding and provided written consent. A time-out was performed to document the patient's name, date of , and site of procedure. The r ight chest was prepped and draped in usual sterile fashion. 1% lidocaine was used for local anesthes ia. Utilizing ultrasound guidance, a 5 djiboutian cather was advanced into pleural fluid. Aspiration wa s performed. The patient tolerated procedure without immediate complication. Sterile bandages were applied over t he aspiration site(s).] FINDINGS: 1000 cc of breezy color fluid was obtained without complication. IMPRESSION: 1. Successful ultrasound-guided thoracentesis healing 1000 cc of breezy-colored fluid from the right thorax. Reviewed, dictated and finalized at location A. MER OPERATOR THREE KNIFE
[2021-11-22 09:53] VITALS: BP 108/56; PULSE 72; RESP 24; TEMP 36.4; O2SAT 97
--- NOTE | 2021-11-22 09:56 | ECG_ITS ---
Measurements Intervals [place] Rate: 69 P: 42 KS: 182 QRS: 27 QRSD: 98 T: 25 QT: 339 QTc: 365 Interpretive Statements SINUS RHYTHM INCOMPLETE RIGHT BUNDLE BRANCH BLOCK BORDERLINE ST-T WAVE ABNORMALITY- ANT/INF LEADS BASELINE ARTIFACT- I, II, III, AVR, AVL, AVF BORDERLINE ECG Electronically Signed On 11-22-2021 10:34:15 [employer] by Charlie Ruiz D.O.
--- NOTE | 2021-11-22 10:13 | ED.SOB ---
HPI - SOB/Dyspnea General Chief Complaint: Shortness of Breath/Dyspnea Stated Complaint: SOB Time Seen by Provider: 11/22/21 09:56 Source: patient and family Limitations: no limitations History of Present Illness HPI Narrative: Patient is 76 years old white male brought to the emergency room by his because of shortness of breath since September 2021. Patient was seen in our hospital recently and had a diagnosis of right side pleural effusion, thoracentesis, 1000 cc of fluid, unknown diagnosis at this time. History of diabetes, hypertension, hyperlipidemia, atrial fibrillation on Eliquis and aspirin. Patient is full code, never had Covid infection, is fully vaccinated for COVID, last COVID vaccine was June 2021. Patient denies any fever, chills, nausea, vomiting, chest pain or any change about his shortness of breath compared to September 2021. is telling me that he was told to go to the emergency room if he is not feeling better Related Data Home Medications Medication Instructions Recorded Confirmed apixaban 5 mg tablet 5 mg PO BID 08/21/19 11/17/21 digoxin 125 mcg (0.125 mg) tablet 125 mcg PO DAILY 08/21/19 11/17/21 metoprolol tartrate 25 mg tablet 25 mg PO BID 08/21/19 11/17/21 donepezil [Aricept] 10 mg PO DAILY 04/30/21 11/17/21 hydroxyurea 500 mg capsule 500 mg PO DAILY cap 10/29/21 11/17/21 albuterol sulfate 1 puff INHALATION Q4H PRN 11/17/21 11/17/21 atorvastatin 20 mg PO DAILY 11/17/21 11/17/21 memantine 10 mg PO BID 11/17/21 11/17/21 tamsulosin 0.4 mg PO DAILY 11/17/21 11/17/21 Allergies Allergy/AdvReac Type Severity Reaction Status Date / Time No Known Allergies Allergy Verified 11/17/21 14:24 Review of Systems Review of Systems: CONSTITUTIONAL: Denies fever, chills, or sweats. EYES: Denies visual changes, redness, or discharge. ENT: Denies rhinorrhea, congestion, sore throat, or otalgia. CARDIOVASCULAR: Denies chest pain, palpitations, or edema. RESPIRATORY: Shortness of breath with dry cough GASTROINTESTINAL: Denies abdominal pain, nausea, vomiting, or diarrhea. GENITOURINARY: Denies dysuria or hematuria. SKIN: Denies rash or itching. MUSCULOSKELETAL: Denies back pain, joint pain, or myalgia. NEUROLOGIC: Denies headache, numbness, or weakness. PSYCHIATRIC: Denies anxiety or depression. [facility] Past Medical History Medical History Benign prostatic hyperplasia Chronic anticoagulation Essential thrombocytosis History of skin cancer Including basal cell and squamous cell carcinoma. Melanoma documented however patient and deny this diagnosis. Hyperlipidemia Hypertension Osteoarthritis Paroxysmal atrial fibrillation Short-term memory loss Small cell carcinoma of lung Type 2 diabetes mellitus Surgical History Surgical History History of bladder surgery Bladder biopsy, benign pathology. History of carpal tunnel release of both wrists History of knee surgery History of open reduction and internal fixation (ORIF) procedure Right femur fracture. History of repair of rotator cuff Bilateral. 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 Status post trigger finger release Bilateral. Family History Family History Mother Family history of diabetes mellitus in first degree relative Father No problems noted. Sibling No problems noted. Other Diabetes mellitus Social History Social History Social History: Surrogate decision maker: Meera Patterson, . Code status: Full code. Smoking status: Former smoker Tobacco type: cigarettes Second hand tobacco smoke exposure: No Additional smoking assessment comments: Quit in 1990. Alcohol intake: current Drinks per week: 1 Subs
[2021-11-22 10:56] LABS: Basophils Absolute Auto 0.1 K/mm3 (0.0-0.1); Eosinophils Absolute Auto 0.2 K/mm3 (0-0.3); Eosinophils Percent Auto 1.3 % (0-4.4); Hematocrit 32.5 % (42.0-52.0); Hemoglobin 10.4 g/dL (14.0-18.0); Immature Granulocyte Absolute 0.18 K/mm3 (0.00-0.031); Immature Granulocyte Percent A 1.4 % (0-0.5); Lymphocytes Absolute Auto 1.76 K/mm3 (0.9-3.2); Lymphocytes Percent Auto 13.7 % (18.3-44.2); Mean Corpuscular Hemoglobin 36.7 pg (26-34); Mean Corpuscular Volume 114.8 fl (80-100); Mean Platelet Volume 12.6 fl (7.4-10.4); Monocytes Absolute Auto 2.2 K/mm3 (0.1-0.6); Monocytes Percent Auto 17.4 % (2.6-8.5); Neutrophils Absolute Auto 8.4 K/mm3 (1.3-6.7); Neutrophils Percent Auto 65.2 % (45.5-73.1); Platelet Count Result 203 k/mm3 (150-375); Red Blood Count 2.83 M/mm3 (4.6-6.20); Red Cell Distribution Width 18.2 % (11.5-14.5); White Blood Count 12.9 K/mm3 (4.5-10.0)
[2021-11-22 11:15] LABS: Alanine Aminotransferase 11 U/L (4-50); Albumin Level 3.2 g/dL (3.5-5.1); Alkaline Phosphatase 87 U/L (38-126); Anion Gap 8 mmol/L (8-16); Aspartate Amino Transferase 15 U/L (17-59); Bilirubin,Total 0.8 mg/dL (0.2-1.3); Blood Urea Nitrogen 27 mg/dL (9-20); Calcium 9.5 mg/dL (8.4-10.2); Carbon Dioxide 26 mmol/L (22-30); Chloride 101 mmol/L (98-107); Estimated Glomerular Filt Rate > 60; Glucose 202 mg/dL (65-110); Potassium 4.4 mmol/L (3.4-5.0); Sodium 135 mmol/L (137-145)
[2021-11-22 11:30] LABS: NT Pro B Type Natriuretic Pept 1470 pg/mL (5-100)
[2021-11-22 11:35] LABS: Erythrocyte Sedimentation Rate 55 mm/hr (0-20)
[2021-11-22 11:42] LABS: Troponin I 0.026 ng/mL (0.000-0.034)
[2021-11-22 11:43] LABS: Ovalocytes 2+ (NORMAL); Platelet Estimate Adequate (Adequate); Tear Drop Cells 1+ (NORMAL)
[2021-11-22 12:18] LABS: CRP 1.6 mg/dL (<1.0)
[2021-11-22 12:39] LABS: INR 1.9; Prothrombin Time 21.1 Seconds (11.1-14.7)
--- NOTE | 2021-11-22 13:06 | PC.NURSE ---
Pt placed on 2L nasal cannula for comfort
--- NOTE | 2021-11-22 14:00 | PM.IMHP ---
H&P: HPI History of Present Illness Date/Time: 11/22/21 14:00 Chief Complaint: Shortness of breath. Narrative: This is a very pleasant 76-year-old male with history of paroxysmal atrial fibrillation on chronic anticoagulation, type 2 diabetes mellitus, skin cancer, and essential thrombocytosis who presented to the emergency department for evaluation of shortness of breath. The patient is known to myself and the hospitalist service with a recent admission on 11/17/2021 for treatment and evaluation of a large right-sided pleural effusion. Diagnostic thoracentesis was performed the following day and cytology on the pleural fluid demonstrated adenocarcinoma, favor lung origin; flow cytometry showed no significant B-cell or aberrant T-cell population. He was discharged the next day and was feeling a bit better however the past couple of days he has got increasingly short of breath and he continues to have intermittent right-sided pleuritic pain. His chest x-ray today showed an increase in a large right-sided pleural effusion but unfortunately the patient took his Eliquis today and he is unable to have a therapeutic thoracentesis so he is being admitted overnight. He had not yet been informed of his pleural fluid results and I did discuss them with him and his at bedside. He denies fever, chills, sweats, cold and flu symptoms, exertional chest pain, nausea, vomiting, and lower extremity edema. Review of Systems Review of Systems: Twelve systems were reviewed and are negative except for as per HPI. [facility] Past Medical History Medical History (Updated 11/22/21 @ 20:04 by Sarah Ernandez PA-C) Benign prostatic hyperplasia Chronic anticoagulation Essential thrombocytosis History of echocardiogram An echocardiogram showed normal LV size and function with an EF of 60 to 65%, grade 1 diastolic dysfunction, and mild RV enlargement with normal systolic function, mild pulmonary hypertension, and small pericardial effusion predominantly along the RV wall. History of skin cancer Including basal cell and squamous cell carcinoma. Melanoma documented however patient and deny this diagnosis. Hyperlipidemia Hypertension Lung cancer Adenocarcinoma, malignant pleural effusion 11/18/2021 Osteoarthritis Paroxysmal atrial fibrillation Pleural effusion on right (11/2021) Short-term memory loss Type 2 diabetes mellitus Surgical History Surgical History History of bladder surgery Bladder biopsy, benign pathology. History of carpal tunnel release of both wrists History of knee surgery History of open reduction and internal fixation (ORIF) procedure Right femur fracture. History of repair of rotator cuff Bilateral. 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 Status post trigger finger release Bilateral. Family History Family History Mother Family history of diabetes mellitus in first degree relative Father No problems noted. Sibling No problems noted. Other Diabetes mellitus Social History Social History Social History: Surrogate decision maker: Meera Patterson, . Code status: Full code. Smoking status: Former smoker Second hand tobacco smoke exposure: No Alcohol intake: current Drinks per week: 1 Substance use: never Substance use type: does not use Additional living arrangements comments: The patient lives with his in [place]. He is originally from [facility]. 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 Spiritual care concerns: No Meds Home Medications and Allergies Home Medications Medication Instructions Recorded Confirmed Type apixaban 5 mg tablet 5 mg PO BID 08/21/19 11/22/21 History dig
[2021-11-22 15:14] LABS: SARS-CoV-2 RNA PCR Negative
[2021-11-22 16:08] VITALS: BP 128/69; PULSE 86; RESP 20; O2SAT 100
[2021-11-22 16:29] VITALS: BP 120/61; PULSE 79; RESP 20; TEMP 36.3; O2SAT 99; BMI 21.8
[2021-11-22 16:43] VITALS: BMI 21.8
[2021-11-22 16:56] LABS: Glucose Point of Care 185 mg/dl (65-105)
--- NOTE | 2021-11-22 16:58 | PM.CNPUL ---
Assessment and Plan Assessment and plan (1) Pleural effusion on right: Onset Date: ~11/2021 Code(s): J90 - Pleural effusion, not elsewhere classified Status: Acute Assessment and Plan: Large pleural effusion on the right side, thoracentesis performed Fe 15, 1 L fluid removed, with reaccumulation. He needs to have a therapeutic tap to decompress his right lung, decrease dyspnea. He may benefit from a large volume removal of fluid as he has a couple liters in the right thorax now, and this will reaccumulate quickly. His Protime is elevated, not clear why. (2) Lung cancer: Qualifiers: Laterality: right Lung location: unspecified part of lung Qualified Code(s): C34.91 - Malignant neoplasm of unspecified part of right bronchus or lung Code(s): C34.90 - Malignant neoplasm of unspecified part of unspecified bronchus or lung Status: Acute Assessment and Plan: new diagnosis; adenocarcinoma; his oncologist is Dr Brenden Lawton; [facility] Has not had treatment yet (3) Shortness of Breath: Code(s): R06.02 - Shortness of breath Status: Acute Assessment and Plan: He does not have known COPD, has an albuterol inhaler at home but has not been using it because it did not provide any benefit. Will temporarily improve with removal of fluid. 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 History of Present Illness History of Present Illness Consult date: 11/22/21 Requesting physician: Sarah Ernandez PA-C Reason for consult: pleural effusion Chief complaint: Large right pleural effusion/dyspnea Narrative: NEW: Shane Patterson is a 76 year old man with a large right pleural effusion tapped , adenocarcinoma on the pathology. He was admitted 11/17 through 11/19, discharged after thoracentesis, and returned today with increased shortness of breath and right sided pleuritic chest pain and RUQ discomfort. His has a large right effusion, however took Eliquis today, so is being admitted to manage shortness of breath and repeat thoracentesis tomorrow. His oncologist is Dr Brenden Lawton at [facility]. He has been followed for the thrombocytosis however has not been seen for the lung cancer, yet. He does not have sputum production, hemoptysis, dysphagia, fever, chills, headaches, leg swelling or palpitations. He sleeps in a recliner because it is more comfortable than sleeping in a bed. He smoked until 20 years ago. 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 No children. PMH : paroxysmal atrial fibrillation on chronic anticoagulation, type 2 diabetes mellitus, skin cancer, and essential thrombocytosis Review of Systems Review of Systems: Lost 20 lb since the beginning of September No difficulty swallowing. No appetite. No fever or chills. no nasal congestion or sore throat. Constitutional: Constitutional: Denies chills, Reports fatigue and Denies night sweats Cardiovascular: Cardiovascular: Denies chest pain and Denies palpitations Respiratory: Respiratory: Reports dyspnea Gastrointestinal: Comments: Had a hx of heartburn, used proton pump inhibitor but since he lost weight over the last few months, he does not have heartburn symptoms any longer. [facility] Past Medical History Medical History (Updated 11/22/21 @ 18:58 by Leonor León MD) Benign prostatic hyperplasia Chronic anticoagulation Essential thrombocytosis History of echocardiogram An echocardiogram showed normal LV size and function with an EF of 60 to 65%, grade 1 diastolic dys
[2021-11-22 17:12] VITALS: O2SAT 99
[2021-11-22] MEDS: ALBUTEROL SULFATE NEB 2.5 MG/0.5 ML INH 5 MG INHALATION ×2 (19:22)
[2021-11-22 20:36] LABS: Glucose Point of Care 143 mg/dl (65-105)
[2021-11-22 22:00] VITALS: BP 116/56; PULSE 87; RESP 18; TEMP 36.2; O2SAT 98
[2021-11-22 22:34] VITALS: PULSE 62
[2021-11-22] MEDS: MEMANTINE 10 MG TABLET PO (22:34)
[2021-11-22] MEDS: METOPROLOL TARTRATE 25 MG TABLET PO (22:34)
[2021-11-23] VITALS (12 sets, daily range): BP systolic 106–136; BP diastolic 40–68; PULSE 60–93; RESP 16–21; TEMP 36.1–36.5; O2SAT 92–100
[2021-11-23] MEDS: ALBUTEROL SULFATE NEB 2.5 MG/0.5 ML INH 5 MG INHALATION ×4 (02:00→19:13)
[2021-11-23 06:26] LABS: Hemoglobin 10.2 g/dL (14.0-18.0); Mean Corpuscular HGB Conc 32.9 g/dl (32-36); Mean Corpuscular Hemoglobin 37.5 pg (26-34); Mean Platelet Volume 12.1 fl (7.4-10.4); Platelet Count Result 177 k/mm3 (150-375); Red Blood Count 2.72 M/mm3 (4.6-6.20); Red Cell Distribution Width 18.3 % (11.5-14.5); White Blood Count 9.5 K/mm3 (4.5-10.0)
[2021-11-23 06:39] LABS: INR 1.5; Prothrombin Time 17.4 Seconds (11.1-14.7)
[2021-11-23 07:00] LABS: Anion Gap 5 mmol/L (8-16); Blood Urea Nitrogen 23 mg/dL (9-20); Calcium 9.4 mg/dL (8.4-10.2); Carbon Dioxide 31 mmol/L (22-30); Chloride 100 mmol/L (98-107); Estimated CRCL calculation 46 ml/min; Estimated Glomerular Filt Rate > 60; Glucose 127 mg/dL (65-110); Magnesium 1.5 mg/dL (1.6-2.3); Potassium 4.1 mmol/L (3.4-5.0); Sodium 136 mmol/L (137-145)
[2021-11-23 07:02] LABS: Digoxin 1.1 ng/mL (0.8-2.0)
[2021-11-23 08:14] LABS: Glucose Point of Care 132 mg/dl (65-105)
[2021-11-23] MEDS: DIGOXIN TAB 125 MCG TABLET PO (09:28)
[2021-11-23] MEDS: DONEPEZIL HCL 10 MG TABLET PO (09:28)
[2021-11-23] MEDS: MEMANTINE 10 MG TABLET PO ×2 (09:28→20:34)
[2021-11-23] MEDS: ATORVASTATIN 20 MG TABLET PO (09:29)
[2021-11-23] MEDS: MAGNESIUM OXIDE 400 MG TABLET PO (09:29)
[2021-11-23] MEDS: METOPROLOL TARTRATE 25 MG TABLET PO (09:29)
[2021-11-23] MEDS: MAGNESIUM SULF 2 GM/WATER 50ML 2 GM/50 ML BAG IVPB (09:29)
[2021-11-23] MEDS: HYDROXYUREA (*CHEMO) 500 MG CAPSULE PO (09:29)
[2021-11-23] MEDS: TAMSULOSIN HCL 0.4 MG CAPSULE PO (09:29)
[2021-11-23 11:49] LABS: Glucose Point of Care 150 mg/dl (65-105)
--- NOTE | 2021-11-23 13:34 | PM.IMPN ---
Progress Note: A&P Assessment and Plan (1) Recurrent right pleural effusion: Code(s): J90 - Pleural effusion, not elsewhere classified Status: Acute Assessment and Plan: Presented with increased shortness of breath Recent admission from 11/17-11/19 requiring thoracentesis yielding 1 L of clear, breezy colored fluid CXR on presentation showed reaccumulation of fluid with large right pleural effusion Therapeutic thoracentesis today yielding 1 L of breezy colored fluid Patient had symptomatic improvement following Appreciate pulmonology consultation Still requiring 2 L supplemental O2, though maintaining adequate O2 sats. Continue to wean oxygen as tolerated (2) Lung cancer: Qualifiers: Laterality: right Lung location: unspecified part of lung Qualified Code(s): C34.91 - Malignant neoplasm of unspecified part of right bronchus or lung Code(s): C34.90 - Malignant neoplasm of unspecified part of unspecified bronchus or lung Status: Acute Assessment and Plan: Cytology of pleural fluid obtained on 11/18/2021 consistent with adenocarcinoma, favor lung. He was informed of these results during this admission. He and his are both aware He sees Dr. Brenedn Lawton ([facility] for his thrombocytosis and he would like to follow-up with him to discuss treatment options (3) Paroxysmal atrial fibrillation: Code(s): I48.0 - Paroxysmal atrial fibrillation Status: Acute Assessment and Plan: Rate is controlled Continue metoprolol. Eliquis held for thoracentesis. Will resume tomorrow (4) Chronic anticoagulation: Code(s): Z79.01 - [facility] (current) use of anticoagulants Status: Acute Assessment and Plan: Plan as above (5) Essential thrombocytosis: Code(s): D47.3 - Essential (hemorrhagic) thrombocythemia Status: Acute Assessment and Plan: Platelet count is normal at this time Continue hydroxyurea. (6) Type 2 diabetes mellitus: Code(s): E11.9 - Type 2 diabetes mellitus without complications Status: Acute Assessment and Plan: A1c is 6.7. Blood sugars have been well controlled Continue sliding scale insulin, Accu-Cheks, and hypoglycemic protocol. Home metformin 1000 mg b.i.d. (7) Hypomagnesemia: Code(s): E83.42 - Hypomagnesemia Status: Acute Assessment and Plan: Mag 1.5 today Administer 2 g IV magnesium sulfate Home magnesium oxide 400 mg p.o. daily supplement has been continued Repeat magnesium tomorrow Subjective Date/time seen: 11/23/21 13:34 Interval history: Date of service: 11/23/2021 Shane Patterson is a 76-year-old male with a history of BPH, hypertension, hyperlipidemia, paroxysmal atrial fibrillation on chronic anticoagulation, type 2 diabetes mellitus, essential thrombocytosis, and new diagnosis of adenocarcinoma of the lung who is seen in follow-up for large right pleural effusion. Patient underwent therapeutic thoracentesis this morning and he is feeling improved now. He was previously endorsing discomfort in the right chest wall that has resolved. He is able to take deeper breaths. He is no longer coughing. Denies conversational dyspnea. Denies chest pain. He does endorse feeling weak and unsteady on his feet, though his notes that he was able to walk to the bathroom today without much difficulty. He just needs to walk a little slower. His appetite has improved some and today he ate more than he has in quite some time. His does noted 25 lb weight loss over the past 2-3 months. The patient denies abdominal pain, nausea, vomiting, fever, or chills. Denies dizziness or lightheadedness. Review of Systems Review of Systems: All systems reviewed & are unremarkable except as noted in HPI and below Exam Narrative: General: Thin, chronically ill-appearing 76 year-old male, sitting on bed, comfortable, NARD Neuro: awake, aler
--- NOTE | 2021-11-23 16:27 | PM.PNPUL ---
Progress Note: A&P Assessment and Plan (1) Pleural effusion on right: Onset Date: 11/2021 Code(s): J90 - Pleural effusion, not elsewhere classified Status: Acute Assessment and Plan: Large pleural effusion on the right side, thoracentesis performed Nov 15, 1 L fluid removed, with reaccumulation. He needs to have a therapeutic tap to decompress his right lung, decrease dyspnea. He may benefit from a large volume removal of fluid as he has a couple liters in the right thorax now, and this will reaccumulate quickly. His Protime is elevated, not clear why. (2) Lung cancer: Qualifiers: Laterality: right Lung location: unspecified part of lung Qualified Code(s): C34.91 - Malignant neoplasm of unspecified part of right bronchus or lung Code(s): C34.90 - Malignant neoplasm of unspecified part of unspecified bronchus or lung Status: Acute Assessment and Plan: new diagnosis; adenocarcinoma; his oncologist is Dr Brenden Lawton; [facility] Has not had treatment yet (3) Shortness of Breath: Code(s): R06.02 - Shortness of breath Status: Acute Assessment and Plan: He does not have known COPD, has an albuterol inhaler at home but has not been using it because it did not provide any benefit. Will temporarily improve with removal of fluid. (4) Chronic anticoagulation: Code(s): Z79.01 - intermediate (current) use of anticoagulants Status: Acute Assessment and Plan: He is on Eliquis, took a dose today; Protime is elevated 21.1. Subjective Date/time seen: 11/23/21 16:27 Patient seen in follow up for a large right pleural effusion tapped , adenocarcinoma on the pathology. He was admitted 11/17 through 11/19, discharged after thoracentesis, and returned yesterday with increased shortness of breath and right sided pleuritic chest pain and RUQ discomfort. He had to wait for his thoracentesis due to Eliquis. His oncologist is Dr Brenden Lawton at [facility]. He has been followed for the thrombocytosis however has not been seen for the lung cancer, yet. He does not have sputum production, hemoptysis, dysphagia, fever, chills, headaches, leg swelling or palpitations. He sleeps in a recliner because it is more comfortable than sleeping in a bed. Review of Systems Review of Systems: All systems reviewed & are unremarkable except as noted in HPI and below Exam Narrative: GEN: Alert, oriented, not in distress. He has audible wheezing with speech, loudest over the neck. HEENT: pupils are equal, EOMI, symmetrical face; oral membranes moist, Mallampati II airway NECK: Trachea is midline CHEST: Decreased air entry on the right; dullness to percussion on the right thorax. Scattered wheezes in the left lung. CV: Irregular S1S2 no m/g/r ABD : (+) bowel sounds, soft, no masses. Extremities : no clubbing, cyanosis, or edema PSYCH: normal thought and speech, gait is not normal Objective Data Vital Signs Vital Signs: Vital Signs - 24 hr 11/22/21 16:29 11/22/21 17:12 11/22/21 22:00 Temperature 36.3 C L 36.2 C L Pulse Rate 79 87 Respiratory Rate 20 18 Blood Pressure 120/61 116/56 L Pulse Oximetry 99 99 98 11/22/21 22:34 02/20/22 06:00 11/23/21 08:00 Temperature 36.1 C L Pulse Rate 62 70 Respiratory Rate 18 Blood Pressure 116/52 L Pulse Oximetry 99 96 11/23/21 08:42 11/23/21 08:49 11/23/21 08:57 Temperature Pulse Rate 77 77 83 Respiratory Rate 18 18 Blood Pressure Pulse Oximetry 96 11/23/21 09:53 11/23/21 11:08 11/23/21 13:20 Temperature 36.3 C L Pulse Rate 68 82 90 Respiratory Rate 16 21 H 18 Blood Pressure 108/47 L 114/62 Pulse Oximetry 98 1
[2021-11-23 16:46] LABS: Glucose Point of Care 316 mg/dl (65-105)
[2021-11-23] MEDS: metFORMIN HCL 500 MG TABLET 1000 MG PO (17:48)
[2021-11-23] MEDS: INSULIN ASPART (*BKC) 100 UNITS/ML SUB-Q (17:48)
[2021-11-23 21:03] LABS: Glucose Point of Care 170 mg/dl (65-105)
[2021-11-24] VITALS (12 sets, daily range): BP systolic 113–118; BP diastolic 52–57; PULSE 65–105; RESP 17–18; TEMP 36.1–36.2; O2SAT 92–97; BMI 20.8
[2021-11-24 06:40] LABS: Hematocrit 28.8 % (42.0-52.0); Hemoglobin 9.5 g/dL (14.0-18.0); Mean Corpuscular Hemoglobin 36.5 pg (26-34); Mean Corpuscular Volume 110.8 fl (80-100); Mean Platelet Volume 12.3 fl (7.4-10.4); Platelet Count Result 168 k/mm3 (150-375); Red Cell Distribution Width 17.9 % (11.5-14.5); White Blood Count 8.4 K/mm3 (4.5-10.0)
[2021-11-24 06:49] LABS: Anion Gap 3 mmol/L (8-16); Blood Urea Nitrogen 18 mg/dL (9-20); Calcium 9.1 mg/dL (8.4-10.2); Carbon Dioxide 31 mmol/L (22-30); Chloride 100 mmol/L (98-107); Estimated CRCL calculation 45 ml/min; Estimated Glomerular Filt Rate > 60; Glucose 148 mg/dL (65-110); Magnesium 1.5 mg/dL (1.6-2.3); Potassium 3.9 mmol/L (3.4-5.0); Sodium 134 mmol/L (137-145)
[2021-11-24 07:57] LABS: Glucose Point of Care 169 mg/dl (65-105)
[2021-11-24] MEDS: TAMSULOSIN HCL 0.4 MG CAPSULE PO (08:22)
[2021-11-24] MEDS: METOPROLOL TARTRATE 25 MG TABLET PO (08:22)
[2021-11-24] MEDS: metFORMIN HCL 500 MG TABLET 1000 MG PO (08:22)
[2021-11-24] MEDS: MEMANTINE 10 MG TABLET PO (08:23)
[2021-11-24] MEDS: DIGOXIN TAB 125 MCG TABLET PO (08:23)
[2021-11-24] MEDS: ATORVASTATIN 20 MG TABLET PO (08:23)
[2021-11-24] MEDS: HYDROXYUREA (*CHEMO) 500 MG CAPSULE PO (08:24)
[2021-11-24] MEDS: DONEPEZIL HCL 10 MG TABLET PO (08:24)
[2021-11-24] MEDS: MAGNESIUM OXIDE 400 MG TABLET PO (08:24)
[2021-11-24] MEDS: MAGNESIUM SULF 2 GM/WATER 50ML 2 GM/50 ML BAG IVPB (08:25)
[2021-11-24] MEDS: ALBUTEROL SULFATE NEB 2.5 MG/0.5 ML INH 5 MG INHALATION (08:40)
[2021-11-24 11:48] LABS: Glucose Point of Care 187 mg/dl (65-105)
--- NOTE | 2021-11-24 14:18 | HOMEO2EVAL ---
Evaluation was performed at [facility] Home Oxygen Evaluation RC: Home Oxygen (O2) Evaluation Start: 11/24/21 11:57 Freq: ONCE Status: Active Protocol: RPE Activity Type Activity Date Activity User E-Sign Co-Sign Detail Recorded Client Recorded Date Recorded By Document 11/24/21 13:30 DJO [id number] 11/24/21 14:18 DJO Document 11/24/21 13:35 DJO [id number] 11/24/21 14:18 DJO Document 11/24/21 13:45 DJO [email or web address] 11/24/21 14:18 DJO 11/24/21 11/24/21 11/24/21 13:30 13:35 13:45 Home O2 Evaluation Test Phase Resting Exercise Resting Oxygen Delivery Room Air Room Air Room Air Pulse Oximetry (90-100 %) 97 95 96 Pulse Rate (60-100 beats/min) 94 105 H 92 Activity Tolerance Good Treatment Charges O2 Evaluation - Inpatient
--- NOTE | 2021-11-24 14:18 | PCRCNOTE ---
HOME O2 EVAL COMPLETE, NO REQUIREMENTS.
--- NOTE | 2021-11-24 15:11 | PM.DS ---
DS: Admitting Diagnosis Discharge Date 11/24/2021 Admitting Diagnosis Right pleural effusion DS: Discharge Diagnosis Discharge Diagnosis (1) Recurrent right pleural effusion: Code(s): J90 - Pleural effusion, not elsewhere classified Status: Acute Assessment and Plan: Presented with increased shortness of breath Recent admission from 11/17-11/19 requiring thoracentesis yielding 1 L of clear, breezy colored fluid CXR on presentation showed reaccumulation of fluid with large right pleural effusion He underwent therapeutic thoracentesis on 11/23 yielding 1 L of breezy colored fluid Patient had symptomatic improvement following He was seen in consultation by pulmonology He did require 2 L supplemental O2 although he had no episodes of hypoxia and his O2 sats remained stable. He was able to wean to room air without difficulty. Home O2 eval performed on 11/24 and patient had no ongoing oxygen requirements. He will follow-up with his oncologist regarding malignant pleural effusion. Consider PleurX catheter if recurrent (2) Lung cancer: Qualifiers: Laterality: right Lung location: unspecified part of lung Qualified Code(s): C34.91 - Malignant neoplasm of unspecified part of right bronchus or lung Code(s): C34.90 - Malignant neoplasm of unspecified part of unspecified bronchus or lung Status: Acute Assessment and Plan: Cytology of pleural fluid obtained on 11/18/2021 consistent with adenocarcinoma, favor lung. He was informed of these results during this admission. He and his are both aware He sees Dr. Brenden Lawton ([facility]) for his thrombocytosis and he would like to follow-up with him to discuss treatment options Patient's contacted his oncologist office and they will call to schedule an appointment. Records release filled out by the patient at this facility and his pathology results and imaging will be sent to his oncologist (3) Paroxysmal atrial fibrillation: Code(s): I48.0 - Paroxysmal atrial fibrillation Status: Acute Assessment and Plan: Rate is controlled Continue metoprolol. Eliquis was held prior to thoracentesis. Resumed on discharge. (4) Essential thrombocytosis: Code(s): D47.3 - Essential (hemorrhagic) thrombocythemia Status: Acute Assessment and Plan: Platelet count is normal at this time Continue hydroxyurea. (5) Type 2 diabetes mellitus: Code(s): E11.9 - Type 2 diabetes mellitus without complications Status: Acute Assessment and Plan: A1c is 6.7. Blood sugars were well controlled during admission Managed with sliding scale insulin, Accu-Cheks, and hypoglycemic protocol. Continue home metformin 1000 mg b.i.d. (6) Hypomagnesemia: Code(s): E83.42 - Hypomagnesemia Status: Acute Assessment and Plan: Magnesium was 1.5. Supplemented with IV magnesium sulfate Continue home magnesium oxide 400 mg daily DS: Summary Hospital Course Hospital Course: Date of admission: 11/22/2021 Date of discharge: 11/24/2021 Shane Patterson is a 76-year-old male with a history of BPH, hypertension, hyperlipidemia, paroxysmal atrial fibrillation on chronic anticoagulation, type 2 diabetes mellitus, essential thrombocytosis, and new diagnosis of adenocarcinoma of the lung who presented to the emergency department on 11/22/2021 with complaints of increased shortness of breath following recent admission requiring thoracentesis. He was admitted to the hospitalist service for further evaluation and management and was seen in consultation by pulmonology. Please see above for further details. He had symptomatic improvement following thoracentesis and was no longer requiring supplemental oxygen. He was feeling improved and requested discharge home. Discussed with pulmonology who was in agreement. Given the patient's overall improvement, he was determined to no longer require inpa
== END 2021-11-24 15:45 | disposition home or self-care (01) | DRG 187 ==
LOC: ANHED 14:07 → ANH3MEDSUR 15:31
PROVIDERS: Physician Assistant; Admitting Provider Family Medicine; Emergency Provider Emergency Medicine; PCP Family Medicine; Visit Provider Physician Assistant
DX: J90 Pleural effusion, not elsewhere classified (principal); C34.91 Malignant neoplasm of unspecified part of right bronchus or lung; I48.0 Paroxysmal atrial fibrillation; Z20.822 Contact with and (suspected) exposure to COVID-19; Z87.891 Personal history of nicotine dependence; E11.9 Type 2 diabetes mellitus without complications; E78.5 Hyperlipidemia, unspecified; I10 Essential (primary) hypertension; Z85.828 Personal history of other malignant neoplasm of skin; N40.0 Benign prostatic hyperplasia without lower urinary tract symptoms; D47.3 Essential (hemorrhagic) thrombocythemia; R06.02 Shortness of breath; E83.42 Hypomagnesemia; Z79.899 Other long term (current) drug therapy; Z79.01 Long term (current) use of anticoagulants; Z79.84 Long term (current) use of oral hypoglycemic drugs
CPT/HCPCS: 32555; 36415; 71046; 80048; 80053; 80162; 82948; 83735; 83880; 84443; 84484; 85025; 85027; 85610; 85652; 86140; 93005; 94618; 94640; 96365; 99285; A9270; C9803; J1815; J3475; U0003; U0005